=== PATIENT | female | born 1970 | race Caucasian/White ===

== ENCOUNTER 2020-08-26 06:37 | Outpatient (REF) | payer OTHER, SELFPAY ==
[2020-08-26 06:57] LABS: COVID-19 Test Negative (Negative); IDNOW Serial# 55D5AD1C
== END 2020-08-26 06:38 | disposition home or self-care (01) ==
LOC: HO.LAB 06:37
PROVIDERS: Visit Provider Internal Medicine
DX: Z20.828 Contact with and (suspected) exposure to other viral communicable diseases (principal)
CPT/HCPCS: 87635; C9803

== ENCOUNTER 2020-08-29 07:27 | Outpatient (REF) | payer OTHER, SELFPAY ==
[2020-08-30 08:23] LABS: COVID-19 Test Negative (Negative)
== END 2020-08-29 07:28 | disposition home or self-care (01) ==
LOC: HO.EMPCOV 07:27
PROVIDERS: Visit Provider Internal Medicine
DX: Z20.828 Contact with and (suspected) exposure to other viral communicable diseases (principal)
CPT/HCPCS: 87635; C9803

== ENCOUNTER 2020-09-01 12:56 | Outpatient (REF) | payer OTHER, SELFPAY ==
[2020-09-01 13:56] LABS: MANUAL DIFF FLAG NO
[2020-09-01 14:02] LABS: Basophils Percent Auto 0.8 % (0-2); Eosinophils Absolute Auto 0.1 X10*3/uL (0.0-0.4); Eosinophils Percent Auto 1.9 % (0-4); Hematocrit 42.6 % (37-47); Hemoglobin 14.2 g/dl (12.0-16.0); Imm Gran Abs Auto 0.02 X10*3/uL (0.00-0.03); Imm Gran Pct Auto 0.5 % (0.0-0.4); Lymphocytes Absolute Auto 1.6 X10*3/uL (1.2-4.9); Lymphocytes Percent Auto 42.7 % (20-40); Mean Corpuscular HGB Conc 33.3 g/dl (31.0-35.0); Mean Corpuscular Hemoglobin 30.6 pg (27.0-33.0); Mean Corpuscular Volume 91.8 fL (80-98); Mean Platelet Volume 9.9 fL (9.4-12.3); Monocytes Absolute Auto 0.3 X10*3/uL (0.1-1.2); Monocytes Percent Auto 7.8 % (2-11); Neutrophils Absolute Auto 1.7 X10*3/uL (2.0-8.3); Neutrophils Percent Auto 46.3 % (45-73); Platelet Count 248 X10*3/uL (160-400); Red Blood Count 4.64 X10*6/uL (4.20-5.50); White Blood Count 3.7 X10*3/uL (4.8-10.8)
[2020-09-01 14:32] LABS: Alanine Aminotransferase 17 U/L (0-31); Albumin Level 4.2 g/dL (3.5-5.0); Alkaline Phosphatase 87 U/L (39-117); Anion Gap 11 (12-20); Aspartate Amino Transferase 17 U/L (5-31); Bilirubin Total 0.5 mg/dL (0.0-1.0); Blood Urea Nitrogen 16 mg/dL (9-16); Carbon Dioxide 28 mmol/L (22-29); Chloride 105 mmol/L (96-108); Estimated Glomerular Filt Rate 58; Glucose Random 96 mg/dL (60-115); Potassium 4.2 mmol/l (3.3-5.1); Sodium 140 mmol/L (135-145); Total Protein 6.6 g/dL (6.5-8.0)
[2020-09-01 14:35] LABS: Cholesterol 213 mg/dL; HDL Cholesterol 62 mg/dL; LDL Cholesterol Calculated 137 mg/dl; Triglycerides 74 mg/dL
[2020-09-01 14:56] LABS: Thyroid Stimulating Hormone 2.16 uIU/mL (0.32-4.0); Vitamin D 25-OH Total 18.2 ng/mL (>30)
[2020-09-06 13:08] LABS: A. Phagocytophilum Ab IgG <1:64 (<1:64); A. Phagocytophilum Ab IgM <1:20 (<1:20); E. Chaffeensis Ab IgG <1:64 (<1:64); E. Chaffeensis Ab IgM <1:20 (<1:20)
== END 2020-09-01 12:57 | disposition home or self-care (01) ==
LOC: HO.10HDL 12:56
PROVIDERS: Absent Provider Family Medicine; Visit Provider Nurse Practitioner
DX: A77.49 Other ehrlichiosis (principal); Z79.2 Long term (current) use of antibiotics; E03.9 Hypothyroidism, unspecified; E66.01 Morbid (severe) obesity due to excess calories; E55.9 Vitamin D deficiency, unspecified; Z68.37 Body mass index [BMI] 37.0-37.9, adult
CPT/HCPCS: 36415; 80053; 80061; 82306; 84443; 85025; 86666

== ENCOUNTER 2020-09-16 08:56 | Outpatient (REF) | payer OTHER, SELFPAY ==
[2020-09-16 09:18] LABS: COVID-19 Test Negative (Negative)
== END 2020-09-16 08:57 | disposition home or self-care (01) ==
LOC: HO.EMPCOV 08:56
PROVIDERS: PCP Internal Medicine; Visit Provider Internal Medicine
DX: Z20.828 Contact with and (suspected) exposure to other viral communicable diseases (principal)
CPT/HCPCS: 87635; C9803

== ENCOUNTER 2020-11-25 08:53 | Outpatient (REF) | payer OTHER, SELFPAY ==
[2020-11-25 11:26] LABS: Thyroid Stimulating Hormone 1.31 uIU/mL (0.32-4.0)
[2020-11-25 12:02] LABS: Vitamin B12 529 pg/mL (200-900)
[2020-11-26 04:03] LABS: Follicle Stimulating Hormone 84.8 mIU/mL; Lutenizing Hormone 55.4 mIU/mL
[2020-11-26 05:37] LABS: EBV-VCA IgM Ab <36.00 U/mL; Epstein Barr Virus Early Ag Ab <9.00 U/mL
[2020-11-26 05:57] LABS: DHEA Sulfate 93 mcg/dL (19-231)
[2020-11-29 21:27] LABS: Estradiol Ultra Sensitive 15 pg/mL
[2020-11-30 06:02] LABS: Magnesium, RBC 6.5 mg/dL (4.0-6.4)
[2020-11-30 08:01] LABS: Testosterone, Free 3.3 pg/mL (0.1-6.4); Testosterone, Total 50 ng/dL (2-45)
[2020-11-30 15:57] LABS: Progesterone <0.1 ng/mL
[2020-11-30 22:16] LABS: FT4 by Equilib. Dialysis 2.2 ng/dL (0.9-2.2)
[2020-11-30 23:27] LABS: Methylmalonic Acid 200 nmol/L (87-318)
[2020-12-01 11:17] LABS: IGF-1 (Somatomedin C) 82 ng/mL (52-328); IGF-1 Z Score (Female) -1.1 SD (-2.0 - +2.0)
== END 2020-11-25 08:54 | disposition home or self-care (01) ==
LOC: HO.10HDL 08:53
PROVIDERS: Visit Provider Family Medicine
DX: N95.1 Menopausal and female climacteric states (principal); R53.83 Other fatigue
CPT/HCPCS: 36415; 82607; 82627; 82670; 83001; 83002; 83735; 83921; 84144; 84305; 84402; 84403; 84439; 84443; 84481; 86664; 86665

== ENCOUNTER 2020-12-05 07:41 | Outpatient (REF) | payer OTHER, SELFPAY ==
[2020-12-05 08:19] LABS: COVID-19 Test Negative (Negative); IDNOW Serial# 55D5AD1C
== END 2020-12-05 07:42 | disposition home or self-care (01) ==
LOC: HO.EMPCOV 07:41
PROVIDERS: Visit Provider Internal Medicine
DX: Z20.822 Contact with and (suspected) exposure to COVID-19 (principal)
CPT/HCPCS: 36415; 87635; C9803

== ENCOUNTER 2020-12-08 14:12 | Outpatient (REF) | payer OTHER, SELFPAY ==
[2020-12-08 14:31] LABS: COVID-19 Test Negative (Negative); IDNOW Serial# 55D5AD1C
== END 2020-12-08 14:13 | disposition home or self-care (01) ==
LOC: HO.LAB 14:12
PROVIDERS: Visit Provider Internal Medicine
DX: Z20.822 Contact with and (suspected) exposure to COVID-19 (principal)
CPT/HCPCS: 36415; 87635; C9803

== ENCOUNTER 2020-12-23 10:22 | Outpatient (REF) | payer OTHER, SELFPAY ==
[2020-12-23 14:21] LABS: Vitamin D 25-OH Total 19.9 ng/mL (>30)
== END 2020-12-23 10:23 | disposition home or self-care (01) ==
LOC: HO.10HDL 10:22
PROVIDERS: Visit Provider Internal Medicine Endocrinology, Diabetes & Metabolism
DX: E55.9 Vitamin D deficiency, unspecified (principal)
CPT/HCPCS: 36415; 82306